=== PATIENT | male | born 1995 | race Caucasian/White ===

== ENCOUNTER 2021-06-27 17:37 | Emergency (ER) | payer BC ==
[~2021-06-27] VITALS: Ht 188 cm; Wt 90.0 kg
--- NOTE | 2021-06-27 18:31 | PHYS DOC ---
Past History Past Surgical History: No Surgical History General Adult EDM: Chief Complaint: LOSS OF CONSCIOUSNESS HPI: HPI: 26-year-old male presents with head laceration and head trauma. The patient was skateboarding at a local skate park and the next and he remembers is sitting up on the concrete with his left eyebrow bleeding. Patient had some altered mental status and decreased awareness for little while. He appears to be back at baseline at this time. Patient has some soreness around the laceration but does not complain of any other pain at this time. He had no vomiting. Review of Systems: Review of Systems: Constitutional: Denies fever or chills Eyes: Denies change in visual acuity HENT: Denies nasal congestion or sore throat Respiratory: Denies cough or shortness of breath Cardiovascular: Denies chest pain or edema GI: Denies abdominal pain, nausea, vomiting, bloody stools or diarrhea : Denies dysuria Musculoskeletal: Denies back pain or joint pain Integument: Laceration left eyebrow Neurologic: Denies headache, focal weakness or sensory changes Endocrine: Denies polyuria or polydipsia Lymphatic: Denies swollen glands Psychiatric: Denies depression or anxiety Allergies: Allergies: Allergies Uncoded Allergies Type Severity Reaction Last Updated Verified PCN Allergy Intermediate 06/27/21 Physical Exam: PE: Constitutional: Well developed, well nourished, no acute distress, non-toxic appearance. [] HENT: Normocephalic, atraumatic, bilateral external ears normal, oropharynx moist, no oral exudates, nose normal. [] Eyes: PERRLA, EOMI, conjunctiva normal, no discharge. [] Neck: Normal range of motion, no tenderness, supple, no stridor. [] Cardiovascular: Heart rate regular rhythm, no murmur [] Lungs & Thorax: Bilateral breath sounds clear to auscultation [] Abdomen: Bowel sounds normal, soft, no tenderness, no masses, no pulsatile masses. [] Skin: 2 cm linear laceration of left eyebrow [] Back: No tenderness, no CVA tenderness. [] Extremities: No tenderness, no cyanosis, no clubbing, ROM intact, no edema. [] Neurologic: Alert and oriented X 3, normal motor function, normal sensory function, no focal deficits noted. [] Psychologic: Affect normal, judgement normal, mood normal. [] Current Patient Data: Vital Signs: Vital Signs Date Time Temp Pulse Resp B/P (MAP) Pulse Ox O2 Delivery O2 Flow Rate FiO2 06/27/21 18:18 97.8 60 22 112/83 (93) 100 Room Air EKG: EKG: [] Radiology/Procedures: Radiology/Procedures: [] Impressions: Exam: CT head INDICATION: Fall off skateboard TECHNIQUE: Sequential axial images through the head were obtained without the administration of IV contrast. Exposure: One or more of the following in the visualized dose reduction techniques were utilized for this examination: 1. Automated exposure control 2. Adjustment of the MA and/or KV according to patient size 3. Use of iterative of reconstructive technique Comparisons: None FINDINGS: No focal parenchymal lesion or hemorrhage is identified. There is no midline shift or sulcal effacement. No acute vascular territory infarction is identified. Garcia-white distinction is preserved. The ventricular system is within normal limits without compression hydrocephalus. The basal cisterns are well maintained. The visualized portions of the paranasal sinuses and mastoid air cells are well- pneumatized. No acute fractures. IMPRESSION: No acute intracranial abnormality. Electronically signed by: Annette Cochran MD (06/27/2021 6:48 PM) [facility] DICTATED AND SIGNED BY: ANNETTE COCHRAN MD DATE: 06/27/211846 CC: DENTON VUONG DO; NON,STAFF ~ Heart Score: C/O Chest Pain: N/A Risk Factors: Risk Factors: DM, Current or recent (<one month) smoker, HTN, HLP, family history of CAD, obesity. Risk Scores: Score 0 - 3: 2.5% MACE over next 6 weeks - Discharge Home Score 4 - 6: 20.3% MACE over next 6 weeks - Admit for Clinical Observation Score 7 - 10: 72.7% MACE over next 6 weeks - Early Invasive Strategies Course & Med Decision Making: Course & Med Decision Making Pertinent Labs and Imaging studies reviewed. (See chart for details) Patient's head CT is negative for acute findings. I have repaired his laceration with sutures. See note below for details. His tetanus was updated in the emergency room. He is stable for discharge at this time. [] Dragon Disclaimer: Dragon Disclaimer: This electronic medical record was generated, in whole or in part, using a voice recognition dictation system. Laceration Repair Lac Repair Indication: [] 2 cm linear laceration of left eyebrow. Procedure: I obtained verbal consent from the patient for suture repair of his left eyebrow laceration. Wound was thoroughly irrigated with normal saline under pressure. No foreign bodies were found. I anesthetized the wound with 1% lidocaine with epinephrine. A total of 2 cc was used. After good anesthesia was achieved, I placed 5 sutures in interrupted fashion. 5-0 Ethilon was used. The skin was well approximated. Bleeding was controlled. No dressing was applied. The patient's tetanus updated in the emergency room. Total repaired wound length: 2 cm Other Items: None The patient tolerated the procedure well. Complications: None. Departure Departure: Impression: Primary Impression: Laceration of left eyebrow Qualified Codes: S01.112A - Laceration without foreign body of left eyelid and periocular area, initial encounter Disposition: HOME / SELF CARE / HOMELESS Condition: IMPROVED Referrals: NON,STAFF (PCP) Patient Instructions: Head Injury, Adult, [id number], Sutured Wound Care, [id number] Additional Instructions: You should have your sutures removed in 5 to 7 days. DENTON VUONG DO June 27, 2021 18:31
--- NOTE | 2021-06-27 18:47 | EKG ---
[address] [address] Test Date: 2021-06-27 Test Time: 18:23:45 Pat Name: ZIA REEVES Department: Room: Gender: M [employer]: SAMANTHA : 1995 Requested By: DENTON VUONG Order Number: [id number] Reading MD: Jr Sheppard MD Measurements Intervals [place] Rate: 74 P: 28 NC: 148 QRS: 72 QRSD: 84 T: 38 QT: 336 QTc: 378 Interpretive Statements SINUS RHYTHM Electronically Signed On 06-29-2021 8:53:37 CDT by Jr Sheppard MD
--- NOTE | 2021-06-27 18:50 | RAD ---
Exam: CT head INDICATION: Fall off skateboard TECHNIQUE: Sequential axial images through the head were obtained without the administration of IV co ntrast. Exposure: One or more of the following in the visualized dose reduction techniques were utilized for this examination: 1. Automated exposure control 2. Adjustment of the MA and/or KV according to patient size 3. Use of iterative of reconstructive technique Comparisons: None FINDINGS: No focal parenchymal lesion or hemorrhage is identified. There is no midline shift or sulcal effaceme nt. No acute vascular territory infarction is identified. Garcia-white distinction is preserved. The ventricular system is within normal limits without compression hydrocephalus. The basal cisterns are well maintained. The visualized portions of the paranasal sinuses and mastoid air cells are well-pneumatized. No acute fractures. IMPRESSION: No acute intracranial abnormality. Electronically signed by: Keshia Alfaro MD (06/27/2021 6:48 PM) [facility]
[2021-06-27] MEDS ORDERED: DIPHTH,PERTUSS(ACELL),TET TOX 0.5 ML DISP.SYRIN. VAX IM ONE (19:15)
[2021-06-27 19:23] VITALS: BP 128/76
== END 2021-06-27 19:30 | disposition home or self-care (01) ==
LOC: ER 17:37
DX: S01.112A Laceration without foreign body of left eyelid and periocular area, initial encounter (principal); Z88.0 Allergy status to penicillin; V00.131A Fall from skateboard, initial encounter; Y93.51 Activity, roller skating (inline) and skateboarding; Y92.830 Public park as the place of occurrence of the external cause; Y99.8 Other external cause status
CPT/HCPCS: 12011; 70450; 90471; 90715; 93005; 99284